=== PATIENT | female | born 1975 | race Caucasian/White ===

== ENCOUNTER 2019-08-12 10:10 | Emergency (ER) | payer OTHER, SELFPAY ==
[2019-08-12 12:41] LABS: Urine Bacteria 20-50 /HPF (<20); Urine Culture Reflex Order REFLEXED; Urine RBC <5 /HPF (NONE SEEN)
--- NOTE | 2019-08-12 12:47 | ER ---
Nurse's Notes [facility] Name: Amara Melgar Age: 43 yrs Sex: Female : 1975 Arrival Date: 08/12/2019 Time: 10:12 Bed 10 Private MD: Diagnosis: Low back pain;Urinary tract infection, site not specified Presentation: 08/12 10:41 Presenting complaint: Patient states: "Both sides of my lower back are hurting really aj1 bad and shooting pains down my legs, and when I do anything it hurts. It in my lower stomach too" Denies urinary symptoms. Denies fever. Denies any recent injury to her back. Transition of care: patient was not received from another setting of care. Onset of symptoms was August 11, 2019. Risk Assessment: Do you want to hurt yourself or someone else? Patient reports no desire to harm self or others. Initial Sepsis Screen: Does the patient meet any 2 criteria? No. Patient's initial sepsis screen is negative. Does the patient have a suspected source of infection? No. Patient's initial sepsis screen is negative. Care prior to arrival: None. 10:41 Method Of Arrival: Ambulatory aj1 10:41 Acuity: OLY 4 aj1 Triage Assessment: 10:43 General: Appears in no apparent distress. comfortable, Behavior is calm, cooperative, aj1 appropriate for age. Pain: Complains of pain in abdomen Pain radiates to abdomen, right leg and left leg Pain currently is 10 out of 10 on a pain scale. Neuro: Level of Consciousness is awake, alert, obeys commands. Cardiovascular: Patient's skin is warm and dry. Respiratory: Airway is patent Respiratory effort is even, unlabored, Respiratory pattern is regular, symmetrical. 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 - Ebola Screening: : Patient denies travel to an Ebola-affected area in the 21 days before illness onset. - Social history:: Smoking status: Patient/guardian denies using tobacco. Screenin:46 Abuse screen: Denies threats or abuse. Denies injuries from another. Nutritional hb screening: No deficits noted. Tuberculosis screening: No symptoms or risk factors identified. Fall Risk None identified. Assessment: 11:48 General: Appears in no apparent distress. Behavior is calm, cooperative. Pain: Pain hb currently is 10 out of 10 on a pain scale. Neuro: Level of Consciousness is awake, alert, obeys commands, Oriented to person, place, time, situation. Cardiovascular: Capillary refill < 3 seconds Patient's skin is warm and dry. Respiratory: Airway is patent Respiratory effort is even, unlabored, Respiratory pattern is regular, symmetrical. GI: No signs and/or symptoms were reported involving the gastrointestinal system. : Reports burning with urination. EENT: No signs and/or symptoms were reported regarding the EENT system. Derm: Skin is intact, is healthy with good turgor. Musculoskeletal: No signs and/or symptoms reported regarding the musculoskeletal system. 12:30 Reassessment: Patient appears in no apparent distress at this time. Patient and/or hb family updated on plan of care and expected duration. Pain level reassessed. Patient is alert, oriented x 3, equal unlabored respirations, skin warm/dry/pink. 13:12 Reassessment: Discharge pending post shot 15 min wait time. hb Vital Signs: 10:43 BP 95 / 67; Pulse 79; Resp 18; Temp 98.0; Pulse Ox 100% on R/A; Weight 55.79 kg (R); aj1 Height 5 ft. 8 in. (172.72 cm) (R); Pain 10/10; 12:45 Pulse 74; Resp 16; Temp 98.1; Pulse Ox 100% on R/A; hb 10:43 Body Mass Index 18.70 (55.79 kg, 172.72 cm) aj1 ED Course: 10:12 Patient arrived in ED. as 10:43 Triage completed. aj1 10:43 Arm band placed on Patient placed in waiting room, Patient notified of wait time. aj1 11:38 Milena Qiu FNP-C is [facility]. snw 11:38 Moris Beavers MD is Attending Physician. snw 11:57 Shana Schofield RN is Primary Nurse. hb 12:00 Patient has correct armband on for positive identification. Call light in reach. hb 12:47 No provider procedures requiring assistance completed. Patient did not have IV access hb during this emergency room visit. Administered Medications: 13:00 CANCELLED (other intervention used): Benadryl 25 mg PO once snw 13:07 Drug: Rocephin (cefTRIAXone) 1 grams Route: IM; Site: left ventrogluteal; hb 13:07 Drug: Pyridium 100 mg Route: PO; hb 13:07 Drug: Bentyl 20 mg Route: PO; hb Outcome: 12:46 Discharge ordered by . snw 13:14 Condition: stable hb 13:23 Discharged to home hb 13:23 Discharge instructions given to patient, Instructed on discharge instructions, follow up and referral plans. medication usage, Demonstrated understanding of instructions, follow-up care, medications, Prescriptions given X 3. 13:24 Patient left the ED. hb Signatures: Katey Chambers RN RN aj1 Milena Qiu, ULTRASOUND SPEC-C ULTRASOUND SPEC-Janie Rios Heather, RN RN hb
--- NOTE | 2019-08-12 12:47 | EDPHYS ---
Physician Documentation [facility] Name: Amara Melgar Age: 43 yrs Sex: Female : 1975 Arrival Date: 08/12/2019 Time: 10:12 Bed 10 Private MD: ED Physician Moris Beavers HPI: 08/12 12:07 This 43 yrs old Female presents to ER via Ambulatory with complaints of Low snw Back Pain. 12:07 The patient presents with pain that is acute, with no known mechanism of injury. The snw symptoms are located in the low back. The pain radiates to the buttocks. The problem was sustained from unknown cause. Onset: The symptoms/episode began/occurred 2 day(s) ago, and became worse. Associated signs and symptoms: Pertinent positives: radiation down bilateral buttocks. Severity of symptoms: At their worst the symptoms were moderate. It is unknown whether or not the patient has had similar symptoms in the past. 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 - Ebola Screening: : Patient denies travel to an Ebola-affected area in the 21 days before illness onset. - Social history:: Smoking status: Patient/guardian denies using tobacco. ROS: 12:05 Constitutional: Negative for fever, chills, and weight loss, Eyes: Negative for injury, snw pain, redness, and discharge, ENT: Negative for injury, pain, and discharge, Neck: Negative for injury, pain, and swelling, Cardiovascular: Negative for chest pain, palpitations, and edema, Respiratory: Negative for shortness of breath, cough, wheezing, and pleuritic chest pain, Abdomen/GI: Negative for abdominal pain, nausea, vomiting, diarrhea, and constipation, : Negative for injury, bleeding, discharge, and swelling, Skin: Negative for injury, rash, and discoloration, Neuro: Negative for headache, weakness, numbness, tingling, and seizure. 12:05 Back: Positive for pain with movement, of the low back area. 12:05 MS/extremity: Positive for pain, of the low back area and radiation down bilateral buttocks \T\ legs. Exam: 12:04 Constitutional: This is a well developed, well nourished patient who is awake, alert, snw and in no acute distress. Head/Face: Normocephalic, atraumatic. Eyes: Pupils equal round and reactive to light, extra-ocular motions intact. Lids and lashes normal. Conjunctiva and sclera are non-icteric and not injected. Cornea within normal limits. Periorbital areas with no swelling, redness, or edema. ENT: Nares patent. No nasal discharge, no septal abnormalities noted. Tympanic membranes are normal and external auditory canals are clear. Oropharynx with no redness, swelling, or masses, exudates, or evidence of obstruction, uvula midline. Mucous membranes moist. Neck: Trachea midline, no thyromegaly or masses palpated, and no cervical lymphadenopathy. Supple, full range of motion without nuchal rigidity, or vertebral point tenderness. No Meningismus. Chest/axilla: Normal chest wall appearance and motion. Nontender with no deformity. No lesions are appreciated. Cardiovascular: Regular rate and rhythm with a normal S1 and S2. No gallops, murmurs, or rubs. Normal PMI, no JVD. No pulse deficits. Respiratory: Lungs have equal breath sounds bilaterally, clear to auscultation and percussion. No rales, rhonchi or wheezes noted. No increased work of breathing, no retractions or nasal flaring. Abdomen/GI: Soft, non-tender, with normal bowel sounds. No distension or tympany. No guarding or rebound. No evidence of tenderness throughout. Skin: Warm, dry with normal turgor. Normal color with no rashes, no lesions, and no evidence of cellulitis. MS/ Extremity: Pulses equal, no cyanosis. Neurovascular intact. Full, normal range of motion. Neuro: Awake and alert, GCS 15, oriented to person, place, time, and situation. Cranial nerves II-XII grossly intact. Motor strength 5/5 in all extremities. Sensory grossly intact. Cerebellar exam normal. Normal gait. Psych: Awake, alert, with orientation to person, place and time. Behavior, mood, and affect are within normal limits. 12:04 Back: pain, that is mild, of the low back area, ROM is painful, CVA tenderness, is absent, vertebral tenderness, is not appreciated, muscle spasm, is not present. Vital Signs: 10:43 BP 95 / 67; Pulse 79; Resp 18; Temp 98.0; Pulse Ox 100% on R/A; Weight 55.79 kg (R); aj1 Height 5 ft. 8 in. (172.72 cm) (R); Pain 10/10; 12:45 Pulse 74; Resp 16; Temp 98.1; Pulse Ox 100% on R/A; hb 10:43 Body Mass Index 18.70 (55.79 kg, 172.72 cm) aj1 MDM: 11:47 Patient medically screened. snw 12:48 Data reviewed: vital signs, nurses notes. Data interpreted: Pulse oximetry: on room air snw is 100 %. Interpretation: normal. Counseling: I had a detailed discussion with the patient and/or guardian regarding: the historical points, exam findings, and any diagnostic results supporting the discharge/admit diagnosis, lab results, the need for outpatient follow up, to return to the emergency department if symptoms worsen or persist or if there are any questions or concerns that arise at home. Special discussion: Based on the history and exam findings, there is no indication for further emergent testing or inpatient evaluation. I discussed with the patient/guardian the need to see the primary care provider for further evaluation of the symptoms. 08/12 11:39 Order name: Urine Microscopic Only; Complete Time: 12:45 snw 08/12 12:00 Order name: Urine Dipstick--Ancillary (enter results) eb 08/12 12:43 Order name: Urine Culture [facility] 08/12 11:39 Order name: Urine Dipstick-Ancillary (obtain specimen); Complete Time: 11:57 snw Administered Medications: 13:00 CANCELLED (other intervention used): Benadryl 25 mg PO once snw 13:07 Drug: Rocephin (cefTRIAXone) 1 grams Route: IM; Site: left ventrogluteal; hb 13:07 Drug: Pyridium 100 mg Route: PO; hb 13:07 Drug: Bentyl 20 mg Route: PO; hb Disposition: 13:30 Co-signature as Attending Physician, Moris Beavers MD I agree with the assessment and kdr plan of care. Disposition: 08/12/19 12:46 Discharged to Home. Impression: Low back pain, Urinary tract infection, site not specified. - Condition is Stable. - Discharge Instructions: Back Pain, Adult, Urinary Tract Infection, Adult, Cryotherapy, Rehydration, Adult, Heat Therapy. - Prescriptions for Macrobid 100 mg Oral Capsule - take 1 capsule by ORAL route every 12 hours for 10 days; 20 capsule. Diclofenac Sodium 75 mg Oral Tablet Sustained Release - take 1 tablet by ORAL route 2 times per day; 30 tablet. orphenadrine citrate 100 mg Oral Tablet Sustained Release - take 1 tablet by ORAL route 2 times per day As needed; 20 tablet. - Medication Reconciliation Form, Thank You Letter, Antibiotic Education, Prescription Opioid Use form. - Follow up: Emergency Department; When: As needed; Reason: Worsening of condition. Follow up: Private Physician; When: 2 - 3 days; Reason: Recheck today's complaints, Continuance of care, Re-evaluation by your physician. Signatures: Dispatcher [employer] EDKatey Short RN RN aj1 Moris Beavers MD MD [facility] Milena Qiu, CORPORATE LICENSED BROKER-C CORPORATE LICENSED BROKER-Csnw Shana Schofield RN RN hb Corrections: (The following items were deleted from the chart) 13:00 12:45 Benadryl 25 mg PO once ordered. snw snw 13:00 13:00 Benadryl 25 mg PO once ordered. snw snw 13:24 12:46 08/12/2019 12:46 Discharged to Home. Impression: Low back pain; Urinary tract hb infection, site not specified. Condition is Stable. Forms are Medication Reconciliation Form, Thank You Letter, Antibiotic Education, Prescription Opioid Use. Follow up: Emergency Department; When: As needed; Reason: Worsening of condition. Follow up: Private Physician; When: 2 - 3 days; Reason: Recheck today's complaints, Continuance of care, Re-evaluation by your physician. snw
[2019-08-12] MEDS ORDERED: DIPHENHYDRAMINE 25 MG TAB/CAP ONE (12:57)
[2019-08-12] MEDS ORDERED: PHENAZOPYRIDINE 100MG TAB PO ONE (12:57)
[2019-08-12] MEDS ORDERED: CEFTRIAXONE 1000 MG/VIAL ONE (12:57)
[2019-08-12] MEDS ORDERED: LIDOCAINE 1% MPF 2 ML AMPULE ONE (12:57)
[2019-08-12] MEDS ORDERED: DICYCLOMINE HCL 10 MG CAP ONE (13:02)
[2019-08-12 13:31] VITALS: BP 95/67; O2SAT 100
[2019-08-12 13:32] VITALS: TEMP 98.1
[2019-08-12 15:55] LABS: Urine Blood TRACE (NEG); Urine Glucose NEGATIVE (NEG); Urine Protein NEGATIVE (NEG); Urine Specific Gravity 1.025 (1.005-1.030)
== END 2019-08-12 13:24 | disposition home or self-care (01) ==
LOC: ER 10:10
DX: N39.0 Urinary tract infection, site not specified (principal)
CPT/HCPCS: 81003; 81015; 87086; 87088; 96372; 99283; J2001